=== PATIENT | male | born 1995 | race Asian ===

== ENCOUNTER 2016-12-31 17:31 | Emergency (ER) | payer MEDICAID, OTHER ==
[2016-12-31 17:34] VITALS: BP 126/74; PULSE 120; RESP 24; O2SAT 98
[2016-12-31 18:52] LABS: BASOPHILS % (AUTO) 0.2 % (0-3); EOSINOPHILS % (AUTO) 0.1 % (0-5); Mean Corpuscular Hemoglobin 28.1 pg (27.0-35.0); Mean Corpuscular Volume 85.2 fL (81-100); NEUTROPHILS % (AUTO) 88.9 % (40-74); Platelet Count 376 bil/L (150-400)
[2016-12-31] MEDS: 0.9% Sodium Chloride 1,000 ML IV SCH ×2 (19:25→22:25)
[2016-12-31 20:37] VITALS: BP 121/66; PULSE 110; RESP 17; O2SAT 100
--- NOTE | 2016-12-31 21:12 | ED.REPORT ---
HPI-NVD Date of Service December 31, 2016 ED Provider: Kevin Jang MD The patient is a healthy 21 year old male who presents to the ED from Urgent Care reporting nausea and vomiting onset early this morning. Associated symptoms include generalized myalgias, headache, fever, and dizziness. The patient denies diarrhea, hematemesis, hematochezia, abdominal pain, or other symptoms. He was found to be tachycardic and febrile at . Nursing Notes Stated Complaint: DIZZY,FEVER,VOMITTING Chief Complaint: Male Abdominal Pain Nursing Notes Reviewed: Yes Allergies: Coded Allergies: No Known Allergies (Unverified , 12/31/16) General Time Seen by MD: 21:10 Chief Complaint Nausea, Vomiting Hx Obtained From: Patient Arrived By: Walk-in Onset Occurred: 13 - 16 hours ago Symptom Duration: Since onset Location: : Diffuse (Myalgias): Other (Head) Quality: Aching, Painful Severity: Current: Moderate Severity: Maximum: Moderate Pertinent Negative: Relieved by nothing Recent Healthcare: No recent doctor visit Past Medical History Past Medical History None reported Past Surgical History None reported Smoking History Never Smoker 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 Respiratory: Denies: Non-productive cough, Shortness of breath Musculoskeletal: Reports: Myalgia (Generalized) Physical Exam Initial Vital Signs Vital Signs (First) Date Time Temp Pulse Resp B/P Pulse Ox O2 Delivery O2 Flow Rate FiO2 12/31/16 17:34 38.4 120 24 126/74 98 Room Air Initial VS: Reviewed, Vital signs abnormal Head / Eyes: Atraumatic, Normocephalic Neck: Supple, Full range of motion Neurologic: Alert, Oriented, Nonfocal Psychiatric: Mood/affect normal, Behavior normal, Normal thought content Alertness: Positive: Sleeping but arousable Distress / Hydration: Positive: Dehydration moderate, Distress mild Abdomen: Soft Tenderness/Guarding/Rebound: Positive: Tender diffuse ENT: Airway patent Mouth: Positive: Mucous membranes dry Respiratory / Chest: Breath sounds NL, Breath sounds = bilat, No respiratory distress Cardiovascular: Regular rhythm, Heart sounds NL Heart Rate / Rhythm: Positive: Tachycardia Skin: Color NL, No rash, Warm, Dry Interpretation & Diagnostics URINE DIPSTICK: Bedside Urine Specific Miracle * 1.010 Bedside Urine pH * 7 Bedside Urine Leukocyte Esterase * Negative Bedside Urine Nitrite * Negative Bedside Urine Protein * Negative Bedside Urine Glucose * Normal Bedside Urine Ketones * Negative Bedside Urine Urobilinogen * Normal Bedside Urine Bilirubin * Negative Bedside Urine Occult Blood * Negative Urine to Lab * Yes Lab Results Interpretation Result Diagram: 12/31/160 12/31/16 1840 Test 12/31/16 18:40 12/31/16 22:45 White Blood Count 13.6th/mm3 (3.8-10.1) Red Blood Count 4.80mil/mm3 (4.40-5.80) Hemoglobin 13.5g/dL (13.8-17.2) Hematocrit 40.9% (41.0-50.0) Mean Corpuscular Volume 85.2fL (81-100) Mean Corpuscular Hemoglobin 28.1pg (27.0-35.0) Mean Corpuscular Hemoglobin Concent 33.0% (32.0-37.0) Red Cell Distribution Width 12.8% (12.3-15.4) Platelet Count 376bil/L (150-400) Neutrophils (%) (Auto) 88.9% (40-74) Lymphocytes (%) (Auto) 2.3% (14-46) Monocytes (%) (Auto) 7.0% (4-12) Eosinophils (%) (Auto) 0.1% (0-5) Basophils (%) (Auto) 0.2% (0-3) Sodium Level 137mEq/L (134-144) Potassium Level 4.5mEq/L (3.5-5.2) Chloride Level 96mEq/L (97-108) Carbon Dioxide Level 26mmol/L (18-29) Blood Urea Nitrogen 9mg/dL (6-20) Creatinine 0.73mg/dL (0.76-1.27) Estimat Glomerular Filtration Rate 146mL/min (>59) Glucose Level 124mg/dL (60-99) Calcium Level 9.6mg/dL (8.5-10.1) Total Bilirubin 0.6mg/dL (0.0-1.2) Aspartate Amino Transf (AST/SGOT) 38U/L (0-50) Alanine Aminotransferase (ALT/SGPT) 63U/L (0-44) Alkaline Phosphatase 95U/L (25-150) Total Protein 8.8g/dL (6.4-8.4) Albumin 4.8g/dL (3.4-5.0) Lipase 17U/L (13-60) Hold [place]umfield Top Tube Received (Received) Hold Urine Received (Received) CT Abd / Pelvis Interpretation CONCLUSION: No acute intra-abdominal abnormality. Hepatic steatosis. Report transmitted to the ED by radiologist Mehrdad Francisco M.D. at 01/01/2017 - 12:37:29 AM PDT Study type: Abdominal CT IV contrast Interpretation / Wet Read by: Interpret - Radiologist Re-Eval/Medical Decision Med Decision/Clinical Course 21-year-old male presents with vomiting and abdominal pain. He was hydrated and given Zofran with good relief. Because of his persistent fever and elevated white count a CT scan was done which was negative for serious or surgical illness. Re-Evaluation/Progress #1: Time of Eval: 23:13 Patient Status: Condition improved Re-Evaluation/Progress Note: Patient is feeling better. Discussed lab results and plan for CT. Re-Evaluation/Progress #2: Time of Eval: 01:15 Patient Status: Condition improved Re-Evaluation/Progress Note: Discussed with patient lab and CT results, diagnosis, and plan for discharge. Follow-up and return to the ER instructions given. Patient agrees with plan for care and all questions were addressed. Counseled Regarding: Diagnosis, Lab results, Need for follow-up, When/why to return to ED Discharge & Departure Impression: Primary Impression: Vomiting Vomiting type: unspecified Vomiting Intractability: non-intractable Nausea presence: with nausea Qualified Code: R11.2 - Nausea with vomiting, unspecified Disposition: Home Discharge Condition All VS Reviewed: Yes Condition: Improved Patient Instructions: Gastroenteritis (ED) Additional Instructions: CT scan shows no evidence of serious or surgical illness. This is likely due to a viral infection. This is likely contagious so do not share your utensils and wash your hands frequently. Recheck as needed if symptoms persist. You will likely get diarrhea. You will need to be rechecked if the diarrhea lasts more than 5 days or is bloody. Ondansetron 4 mg ODT, 1 dissolved orally 4 times a day as needed for nausea and vomiting, #4 dispensed. Referrals: NOPCP (PCP) Scribe Attestation Portions of this note were transcribed by Radha Collins. I, Dr. Jang, personally performed the history, physical exam, and medical decision-making; I reviewed and confirmed the accuracy of the information in the transcribed note. Signed by: Falguni Rhodes, 01/01/2017, 01:35 Kevin Jang MD December 31, 2016 21:12 RADHA COLLINS December 31, 2016 21:17
[2016-12-31] MEDS ORDERED: _Ondansetron ODT 4 mg Tablet PO PRN (23:35)
[2016-12-31 23:44] VITALS: BP 126/70; PULSE 99; RESP 16; O2SAT 99
[2017-01-01 01:20] VITALS: BP 124/72; PULSE 92; RESP 16; O2SAT 100
--- NOTE | 2017-01-01 11:07 | DRSVH ---
PROCEDURE: CT ABDOMEN AND PELVIS WITH CONTRAST ([id number]) INDICATIONS: abd pain, vomiting, fever TECHNIQUE: After the administration of intravenous contrast, 5 mm thick sections acquired from the diaphragm to the symphysis. 5 mm coronal and sagittal reformats were acquired. For radiation dose reduction, the following was used: automated exposure control, adjustment of mA and/or kV according to patient siz e. COMPARISON: None. FINDINGS: Image quality: Excellent. ABDOMEN: Lung bases: Lung bases are clear. Heart size is normal. Solid organs: Liver and spleen are normal in size and enhancement. The liver appears mildly fatty i nfiltrated. Gallbladder appears normal. Biliary system is non dilated. Pancreas enhances normally. No adrenal nodules. Kidneys demonstrate normal size and enhancement, without hydronephrosis. Peritoneum and bowel: Bowel loops demonstrate normal wall thickness and caliber. No free fluid or a ir. Nodes and vessels: No retroperitoneal or mesenteric adenopathy by size criteria. Aorta and inferior vena cava are normal in size. Miscellaneous: No ventral hernias. PELVIS: Genitourinary: Bladder wall thickness is normal. Miscellaneous: No inguinal hernias or adenopathy. Bones: No suspicious bony lesions. No vertebral body compression fractures. IMPRESSION: Source of current vomiting and fever is not seen. No inflammatory process. Suspect mild fatty infiltration within the liver. Dictated by: Stefan Rivera M.D. on 01/01/2017 at 11:04 Approved by: Stefan Rivera M.D. on 01/01/2017 at 11:05
== END 2017-01-01 01:20 | disposition home or self-care (01) ==
LOC: SED 17:31
DX: R11.2 Nausea with vomiting, unspecified (principal); R51 Headache; R50.9 Fever, unspecified; R42 Dizziness and giddiness; M79.1 Myalgia; R10.9 Unspecified abdominal pain
CPT/HCPCS: 36415; 74177; 80053; 83690; 85025; 96360; 99285; J7030; Q9967